=== PATIENT | female | born 1975 | race Two or more races ===

== ENCOUNTER 2018-09-08 09:52 | Day surgery (SDC) | payer OTHER ==
[~2018-09-08 09:52] MED LIST: TENORMIN50 M1; ZYRTEC10 M3
[2018-09-08] MEDS ORDERED: NAPROXEN SODIU550 M1 PO (21:05)
[2018-09-08] MEDS ORDERED: PERCOCET 5-3251 EACH PO (21:07)
== END 2018-09-08 22:20 | disposition home or self-care (01) ==
LOC: CIR.AMB 09:52
DX: N84.0 Polyp of corpus uteri (principal); N73.6 Female pelvic peritoneal adhesions (postinfective)